=== PATIENT | male | born 1985 | race African-American/Black ===

== ENCOUNTER 2016-10-29 00:42 | Emergency (ER) | payer SELFPAY ==
[~2016-10-29] VITALS: Ht 188 cm; Wt 88.0 kg
[~2016-10-29 00:42] MED LIST: CYCL-36 PO; DICL50 PO; HYDR-3533 PO
[2016-10-29 00:44] VITALS: BP 119/74; PULSE 68; RESP 16; TEMP 98.1; O2SAT 97
[2016-10-29] MEDS ORDERED: TETANUS/DIPHTHERIA TOXOID ADULT 0.5 ML VIAL IM ONE (01:15)
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
[2016-10-29] MEDS ORDERED: IBUP800T23 PO (02:29)
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
== END 2016-10-29 03:43 | disposition home or self-care (01) ==
LOC: NEPB 00:42
DX: S62.524A Nondisplaced fracture of distal phalanx of right thumb, initial encounter for closed fracture (principal); S80.212A Abrasion, left knee, initial encounter; W05.1XXA Fall from non-moving nonmotorized scooter, initial encounter; Z23 Encounter for immunization
CPT/HCPCS: 29130; 73140; 73564; 90471; 90714